=== PATIENT | female | born 1940 | race Caucasian/White ===

== ENCOUNTER 2018-01-29 09:31 | Inpatient (IN) | payer OTHER ==
[~2018-01-29] VITALS: Ht 157.5 cm; Wt 70.8 kg
--- NOTE | ~2018-01-29 | EKG ---
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
--- NOTE | ~2018-01-29 | HC ---
[facility] [place] [address] CONSULTATION Name: CHRISTINA BROWER Room #: 460-P ADM IN M.R.#: [id number] Admission: 01/29/18 Attend Phys: Ramiro Wynn MD Discharge: Date of : 38 Report #: [id number] THIS REPORT FOR: //name// CC: Ramiro Fisher HISTORY OF PRESENT ILLNESS: This frail, anxious 77-year-old female is admitted with chest pain after a thorough cardiac evaluation. Apparently, there were no cardiac problems. Her symptoms seem to be more related to the left shoulder itself. She notes that she has had chronic left shoulder pain and has been seen multiple times in the past and has had previous treatments including anti-inflammatories and possibly shoulder injection. She has been told she has chronic severe shoulder arthritis and more aggressive treatment measures have been discussed in the past. Today, her symptoms are principally at the left shoulder where she has very limited range of motion. There is joint crepitus and pain with movement, with pain radiating toward the arm and also toward the chest wall. Her symptoms, however, seemed to be mostly mechanical and related to the shoulder joint itself. Neurologic and vascular status appear to be intact. She has good neck movement without much pain. She is not having any intrinsic chest pain or shortness of breath at this time. X-rays of the left shoulder reveal severe end-stage degenerative osteoarthritis with complete loss of joint space and severe upriding humeral head, which abuts the undersurface of the acromion. 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 I have discussed this issue at great length with the patient and with her daughter by phone. I have explained this is clearly a chronic progressive degenerative process. We reviewed treatment options including medical management or possible joint injection or surgical joint arthroplasty. At this point, I would favor conservative management with medications and possible joint injection. Pending their discussion, we may proceed with joint injection tomorrow. I would anticipate hospital discharge and then pain management as an outpatient. If she is interested in shoulder surgery, we will have her schedule with my office, probably to see Dr. Rodriguez, for consideration and discussion about possible total shoulder replacement. If I can be of any further assistance in clarifying these issues in the interim, please do not hesitate to contact me. Thank you for allowing me to participate in her care. <ELECTRONICALLY SIGNED> By: Nain De León MD 02/01/18 0733 1751 [id number] Nain De León MD /nt
[~2018-01-29 09:31] MED LIST: AMBEREN; AMOXICILLIN875 MG PO; ASPIRIN EC81 M1 PO; GLUCOPHAGE500 MG PO; GLYBURIDE 5 MG T5 MG PO; NORCO 5-325 TA1 EACH PO; ZOCOR 10 MG TAB10 MG
[2018-01-29 09:50] VITALS: BP 134/68
[2018-01-29 10:10] LABS: ABSOLUTE NEUTROPHILS 3.5 thou/uL (1.4-8.2); BASOPHILS 1.2 % (0.0-2.0); EOSINOPHILS 6.6 % (0.0-3.0); HEMOGLOBIN 12.8 gm/dL (12.0-15.0); LYMPHOCYTES 23.4 % (24.0-44.0); MCH 28.7 pg (26.0-34.0); MCHC 33.6 g/dL (28.0-37.0); MCV 85.5 fL (80.0-100.0); MONOCYTES 6.8 % (1.0-8.0); PLATELET COUNT 254 thou/uL (150-400); RBC 4.45 mil/uL (4.20-5.00); RDW 13.1 % (10.5-14.5); WBC 5.6 thou/uL (4.0-11.0)
[2018-01-29 10:18] LABS: ANION GAP 9 mmol/L (7-16); BUN 15 mg/dL (7-18); CALCIUM 9.4 mg/dL (8.5-10.1); CHLORIDE 103 mmol/L (98-107); CO2 27 mmol/L (21-32); GLUCOSE 203 mg/dL (74-106); POTASSIUM 4.4 mmol/L (3.5-5.1); SODIUM 139 mmol/L (136-145)
[2018-01-29 10:27] LABS: ALBUMIN 3.4 g/dL (3.4-5.0); SGOT 19 U/L (15-37); SGPT 27 U/L (30-65); TOTAL BILIRUBIN 0.4 mg/dL (<0.1-1.0); TOTAL PROTEIN 7.1 g/dL (6.4-8.2); TROPONIN-I <0.06 ng/mL (<0.06)
[2018-01-29 14:30] VITALS: BP 126/63
[2018-01-29 18:33] VITALS: BP 127/54
[2018-01-29 18:45] VITALS: BP 121/44
[2018-01-29 19:35] VITALS: BP 114/77
[2018-01-30 03:05] LABS: HEMATOCRIT 36.5 % (37.0-47.0); HEMOGLOBIN 12.1 gm/dL (12.0-15.0); MCH 28.5 pg (26.0-34.0); MCHC 33.3 g/dL (28.0-37.0); MCV 85.7 fL (80.0-100.0); RBC 4.26 mil/uL (4.20-5.00); RDW 13.2 % (10.5-14.5)
[2018-01-30 03:20] LABS: ANION GAP 3 mmol/L (7-16); BUN 21 mg/dL (7-18); CALCIUM 9.1 mg/dL (8.5-10.1); CHLORIDE 104 mmol/L (98-107); CO2 30 mmol/L (21-32); CREATININE 0.9 mg/dL (0.6-1.0); GLUCOSE 123 mg/dL (74-106); SODIUM 137 mmol/L (136-145); TROPONIN-I <0.06 ng/mL (<0.06)
[2018-01-30 05:35] VITALS: BP 144/80
[2018-01-30 08:00] VITALS: BP 138/81
[2018-01-30 15:51] VITALS: BP 154/82
[2018-01-30 20:00] VITALS: BP 144/59
[2018-01-31 04:00] VITALS: BP 135/72
[2018-01-31 07:22] VITALS: BP 121/42
[2018-01-31 15:15] VITALS: BP 140/64
[2018-01-31 19:21] VITALS: BP 130/69
[2018-02-01 04:47] VITALS: BP 119/79
[2018-02-01 08:45] VITALS: BP 132/71
[2018-02-01] MEDS ORDERED: CELEBREX 200 M200 M1 PO (09:14)
[2018-02-01] MEDS ORDERED: HYDROCODONE-AP1 EAC6 PO (09:14)
[2018-02-01 09:28] VITALS: BP 132/71
[2018-02-01 12:24] VITALS: BP 132/71
== END 2018-02-01 12:35 | disposition home or self-care (01) | DRG 554 ==
LOC: ER 09:31 → 4W 13:08 → EROBS 13:08 → 4W 18:15 → ENTRNSPT 02-01 12:24 → EDTRNSPTSTS 02-01 12:29 → 4W 02-01 12:35
PROVIDERS: Hospitalist; Student in an Organized Health Care Education/Training Program
PROC: 3E0U33Z Introduction of Anti-inflammatory into Joints, Percutaneous Approach (ICD-10-PCS; principal; 2018-02-01)
PROC: 3E0U3BZ Introduction of Anesthetic Agent into Joints, Percutaneous Approach (ICD-10-PCS; principal; 2018-02-01)
DX: M19.012 Primary osteoarthritis, left shoulder (principal); R07.89 Other chest pain; I10 Essential (primary) hypertension; E78.5 Hyperlipidemia, unspecified; M62.84 Sarcopenia; R29.6 Repeated falls; E11.9 Type 2 diabetes mellitus without complications; R63.4 Abnormal weight loss; Z68.28 Body mass index [BMI] 28.0-28.9, adult; Z79.84 Long term (current) use of oral hypoglycemic drugs; Z79.82 Long term (current) use of aspirin; Z79.899 Other long term (current) drug therapy; Z91.040 Latex allergy status
CPT/HCPCS: 10045

== ENCOUNTER 2019-03-08 04:50 | Emergency (ER) | payer OTHER ==
[~2019-03-08] VITALS: Ht 160 cm; Wt 72.6 kg
[~2019-03-08 04:50] MED LIST changes: +CELEBREX 200 M200 M1 PO; +HYDROCODONE-AP1 EAC6 PO
[2019-03-08] MEDS ORDERED: PREDNISONE 20 M20 MG PO (06:52)
[2019-03-08] MEDS ORDERED: IPRAT-ALBUT 0.5-3 ML NEB (06:52)
[2019-03-08] MEDS ORDERED: VENTOLIN HFA 1818 GM INH (06:52)
[2019-03-08 06:54] VITALS: BP 120/72
--- NOTE | 2019-03-08 08:48 | EKG ---
[place] [address] [facility] 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 03/08/19 0848 0458 0458 Diogenes Moffett MD, FACC /EPI
== END 2019-03-08 07:00 | disposition home or self-care (01) ==
LOC: ER 04:50
DX: J45.901 Unspecified asthma with (acute) exacerbation (principal); E11.9 Type 2 diabetes mellitus without complications; M19.90 Unspecified osteoarthritis, unspecified site; Z91.040 Latex allergy status